=== PATIENT | male | born 1935 | race African-American/Black ===

== ENCOUNTER 2023-01-15 19:03 | Emergency (ER) | payer OTHER ==
[~2023-01-15] VITALS: Ht 170.2 cm; Wt 75.0 kg
[~2023-01-15 19:03] MED LIST: AMLO10TA80 PO; ASPI-1406 PO; CLOP75TA15 PO; FAMO20TA8 PO; LOSA50TA3 PO
[2023-01-15 19:12] VITALS: BP 117/96
== END 2023-01-15 23:31 | disposition left against medical advice (07) ==
LOC: ER 19:03
DX: Z53.21 Procedure and treatment not carried out due to patient leaving prior to being seen by health care provider (principal)
CPT/HCPCS: 99281